=== PATIENT | female | born 1960 | race Caucasian/White ===

== ENCOUNTER 2019-11-26 11:26 | Emergency (ER) | payer MEDICARE, SELFPAY ==
--- NOTE | 2019-11-26 11:29 | ED.DENTAL ---
HPI - Dental/Oral General Chief complaint: Dental/Oral Stated complaint: R/side of face swollen Time Seen by Provider: 11/26/19 11:29 Source: patient and RN notes reviewed History of Present Illness HPI Narrative: Patient is a 59-year-old female who presents the urgent care with complaints of right lower dental pain and right facial swelling. Patient states that she woke up with the pain and swelling this morning. Patient states that drinking fluids does make the pain worse. No other acute complaints. Denies of any fever, nausea, vomiting. No acute distress noted. Patient aware of the plan of care. Some parts of this dictation were generated by voice recognition software and may contain typographical and/or grammatical inaccuracies. Related Data Home Medications Medication Instructions Recorded Confirmed albuterol sulfate [ProAir HFA] INHALATION 02/16/19 budesonide-formoterol [Symbicort] puff INHALATION BID 02/16/19 bupropion HCl 150 mg PO DAILY 02/16/19 duloxetine mg PO 02/16/19 ergocalciferol (vitamin D2) 02/16/19 ferrous sulfate 02/16/19 ipratropium-albuterol ml INHALATION 02/16/19 lamotrigine 02/16/19 levothyroxine 02/16/19 lubiprostone [Amitiza] mcg PO 02/16/19 methadone 02/16/19 pantoprazole PO 02/16/19 pregabalin [Lyrica] 02/16/19 sertraline mg 02/16/19 tiotropium bromide [Spiriva with INHALATION 02/16/19 HandiHaler] atorvastatin 10 mg tablet 10 mg PO DAILY 02/24/19 baclofen 20 mg tablet 20 mg PO QID tablet 02/24/19 11/26/19 calcium carbonate 600 mg calcium 600 mg PO BID 02/24/19 (1,500 mg) tablet ibuprofen 800 mg tablet 800 mg PO Q6H 02/24/19 rrlwjuyetipr-tiyrsbhm-mxudki PO 02/24/19 Allergies Allergy/AdvReac Type Severity Reaction Status Date / Time No Known Allergies Allergy Verified 11/26/19 11:28 Review of Systems Review of Systems: Narrative: CONSTITUTIONAL: Denies fever, chills, or sweats. EYES: Denies visual changes, redness, or discharge. ENT: Denies rhinorrhea, congestion, sore throat, or otalgia. Reports of right sided facial swelling and right lower dental pain CARDIOVASCULAR: Denies chest pain, palpitations, or edema. RESPIRATORY: Denies cough or dyspnea. GASTROINTESTINAL: Denies abdominal pain, nausea, vomiting, or diarrhea. GENITOURINARY: Denies dysuria or hematuria. SKIN: Denies rash or itching. MUSCULOSKELETAL: Denies back pain, joint pain, or myalgia. NEUROLOGIC: Denies headache, numbness, or weakness. All other systems reviewed are negative, except as documented in HPI. [facility] Past Medical History Medical History (Updated 11/26/19 @ 11:49 by MATIAS Leary) Anxiety COPD (chronic obstructive pulmonary disease) Depression Deviated septum GERD (gastroesophageal reflux disease) History of frequent headaches Inflammatory arthritis Thyroid disorder Surgical History Surgical History H/O knee surgery H/O: hysterectomy History of back surgery Hx of cholecystectomy Family History Family History Father COPD (chronic obstructive pulmonary disease) Pneumonia Social History Social History Smoking status: Former smoker Alcohol intake: never Gender identity (if verbalized by the patient): Female Comments At the time of my signature, I reviewed and agree with the nursing past medical, surgical, social, and family history. There is no relevant family history pertinent to the patient complaint. Exam Narrative: Exam Narrative: GENERAL: This is a well-nourished, well-developed patient, in no apparent distress. HEAD: normocephalic, atraumatic. EYES: PERRL. Sclera clear/white. Vision is grossly intact. EARS: External ears normal, right auditory canal clear and without drainage, right TM normal without perforation. Hearing grossly intact. NOSE: External nose normal with no obv
[2019-11-26 11:37] VITALS: BP 109/72; PULSE 86; RESP 16; TEMP 36.6; O2SAT 100
[2019-11-26 11:48] VITALS: BP 109/72; PULSE 86; RESP 16; TEMP 36.6; O2SAT 100
== END 2019-11-26 11:52 | disposition home or self-care (01) ==
PROVIDERS: Emergency Provider Nurse Practitioner Family; PCP Family Medicine
DX: K02.9 Dental caries, unspecified (principal); K11.20 Sialoadenitis, unspecified; Z87.891 Personal history of nicotine dependence; J44.9 Chronic obstructive pulmonary disease, unspecified; K21.9 Gastro-esophageal reflux disease without esophagitis; F41.9 Anxiety disorder, unspecified; F32.9 Major depressive disorder, single episode, unspecified
CPT/HCPCS: 99213; G0463

== ENCOUNTER 2019-11-28 09:27 | Emergency (ER) | payer MEDICARE, SELFPAY ==
--- NOTE | ~2019-11-28 | CT_ITS ---
EXAMINATION: CT soft tissue neck w con DATE: 11/28/2019 11:16 INDICATION: Right facial swelling. TECHNIQUE: Computed tomography (CT) of the neck was performed with 75 mL Omnipaque-350 intravenous co ntrast. Automated exposure control and iterative reconstruction technique were employed. The dose-alonso gth product was 506.07 mGy-cm. COMPARISON: None FINDINGS: There is mild scarring at the lung apices. There are changes of left hemithyroidectomy. The re is mild right high internal jugular chain lymphadenopathy. There is extensive dental disease. The right parotid gland is enlarged with increased density. Right masseter muscle is enlarged. There is s ubcutaneous fat stranding in the right face and anterior upper chest. There is moderate cervical spon dylosis. IMPRESSION: 1. Right face inflammation centered at the parotid gland, consistent with parotiditis. No sialolith. 2. Mild right high internal jugular chain lymphadenopathy, likely reactive. 3. Extensive dental disease. Reviewed, dictated and finalized at location A. IMPRESSION: 1. Right face inflammation centered at the parotid gland, consistent with parot iditis. No sialolith. 2. Mild right high internal jugular chain lymphadenopathy, likely reactive. 3. Extensive dental disease.
[2019-11-28 09:36] VITALS: BP 126/85; PULSE 98; RESP 15; O2SAT 100
[2019-11-28 09:46] VITALS: BP 116/82; PULSE 90; RESP 12; O2SAT 98
[2019-11-28 10:07] LABS: Basophils Percent Auto 0.2 % (0.2-1.2); Hemoglobin 13.5 g/dL (12.0-15.0); Immature Granulocyte Absolute 0.13 K/mm3 (0.00-0.031); Immature Granulocyte Percent A 0.6 % (0-0.5); Lymphocytes Absolute Auto 1.61 K/mm3 (0.9-3.2); Mean Corpuscular HGB Conc 34.6 g/dl (32-36); Mean Corpuscular Hemoglobin 27.8 pg (26-34); Mean Corpuscular Volume 80.2 fl (80-100); Mean Platelet Volume 11.1 fl (7.4-10.4); Monocytes Absolute Auto 1.2 K/mm3 (0.1-0.6); Monocytes Percent Auto 5.8 % (2.6-8.5); Neutrophils Absolute Auto 17.2 K/mm3 (1.3-6.7); Neutrophils Percent Auto 85.4 % (45.5-73.1); Platelet Count Result 212 k/mm3 (150-375); Red Blood Count 4.86 M/mm3 (4.2-5.4); Red Cell Distribution Width 13.1 % (11.5-14.5); White Blood Count 20.1 K/mm3 (4.5-10.0)
[2019-11-28 10:18] LABS: Anion Gap 12 mmol/L (8-16); Blood Urea Nitrogen 12 mg/dL (7-17); Calcium 9.5 mg/dL (8.4-10.2); Carbon Dioxide 23 mmol/L (22-30); Chloride 98 mmol/L (98-107); Estimated Glomerular Filt Rate > 60; Glucose 113 mg/dL (65-105); Potassium 3.6 mmol/L (3.4-5.0); Sodium 133 mmol/L (137-145)
[2019-11-28 10:27] VITALS: BP 123/79; PULSE 88; RESP 16; TEMP 37.2; O2SAT 96
[2019-11-28] MEDS: FAMOTIDINE 20 MG/2 ML VIAL IV PUSH (10:43)
[2019-11-28] MEDS: AMPICILLIN SULB 3 GM/NS 100 ML 3 GM/100 ML VIAL IVPB (10:43)
--- NOTE | 2019-11-28 10:56 | ED.GENADULT ---
HPI - General Adult General Chief complaint: Dental/Oral Stated complaint: facial swelling Time Seen by Provider: 11/28/19 09:32 Source: patient and family Mode of arrival: ambulatory Limitations: no limitations History of Present Illness HPI narrative: Patient is a 59-year-old female who presents to emergency department for evaluation of right-sided preauricular postauricular swelling patient notes that she developed the symptoms in the last day and a half went yesterday to urgent care was placed on Augmentin well today seen by primary care and referred to emergency department for further evaluation patient denies similar occurrence in the past patient notes mild discomfort of the throat with swallowing patient denies other URI symptoms and presents in no distress Related Data Home Medications Medication Instructions Recorded Confirmed albuterol sulfate [ProAir HFA] INHALATION 02/16/19 budesonide-formoterol [Symbicort] puff INHALATION BID 02/16/19 bupropion HCl 150 mg PO DAILY 02/16/19 duloxetine mg PO 02/16/19 ergocalciferol (vitamin D2) 02/16/19 ferrous sulfate 02/16/19 ipratropium-albuterol ml INHALATION 02/16/19 lamotrigine 02/16/19 levothyroxine 02/16/19 lubiprostone [Amitiza] mcg PO 02/16/19 methadone 02/16/19 pantoprazole PO 02/16/19 pregabalin [Lyrica] 02/16/19 sertraline mg 02/16/19 tiotropium bromide [Spiriva with INHALATION 02/16/19 HandiHaler] atorvastatin 10 mg tablet 10 mg PO DAILY 02/24/19 baclofen 20 mg tablet 20 mg PO QID tablet 02/24/19 11/26/19 calcium carbonate 600 mg calcium 600 mg PO BID 02/24/19 (1,500 mg) tablet ibuprofen 800 mg tablet 800 mg PO Q6H 02/24/19 [id number]-mpstmplp-wbpalq PO 02/24/19 Allergies Allergy/AdvReac Type Severity Reaction Status Date / Time No Known Allergies Allergy Verified 11/26/19 11:28 Review of Systems Review of Systems: All systems reviewed & are unremarkable except as noted in HPI and below PMFSH Past Medical History Medical History Anxiety COPD (chronic obstructive pulmonary disease) Depression Deviated septum GERD (gastroesophageal reflux disease) History of frequent headaches Inflammatory arthritis Thyroid disorder Surgical History Surgical History H/O knee surgery H/O: hysterectomy History of back surgery Hx of cholecystectomy Family History Family History Father COPD (chronic obstructive pulmonary disease) Pneumonia Social History Social History Smoking status: Former smoker Alcohol intake: never Gender identity (if verbalized by the patient): Female Exam Narrative: Exam Narrative: GENERAL: Well-appearing, well-nourished, and in no acute distress. HEAD: Normocephalic, atraumatic. EYES: PERRLA and EOMI. ENT: Nares clear, no rhinorrhea or epistaxis. Mucous membranes moist. Oropharynx without tonsillar hypertrophy exudate or other lesions. Patient with redness swelling tenderness in the preauricular parotid region with some redness in the postauricular and submental mandibular region. Floor of the mouth is soft no dental abscesses or other abnormalities in the oropharynx NECK: Supple. Shotty anterior adenopathy noted CHEST: Clear to auscultation. No respiratory distress. No wheezes rales or rhonchi HEART: Regular rate and rhythm. No murmur heard. EXTREMITIES: Normal range of motion. No edema. SKIN: Warm, dry, no rash. NEURO: No focal deficits. Alert and oriented x3. PSYCH: Normal mood and affect. Course Course Emergency Course: Patient in the room at this time aware of case findings treatment plan and diagnosis as well as discussion with ear nose and throat patient will be discharged with continued treatment of her parotitis patient agrees with this and will follow with Kamille
[2019-11-28 11:01] LABS: CRP 21.4 mg/dL (<1.0)
[2019-11-28 13:05] VITALS: BP 118/75; PULSE 75; RESP 16; O2SAT 100
== END 2019-11-28 13:06 | disposition home or self-care (01) ==
PROVIDERS: Emergency Medicine Emergency Medical Services; Emergency Provider Emergency Medicine; PCP Family Medicine
DX: K11.21 Acute sialoadenitis (principal); F41.9 Anxiety disorder, unspecified; J44.9 Chronic obstructive pulmonary disease, unspecified; F32.9 Major depressive disorder, single episode, unspecified; K21.9 Gastro-esophageal reflux disease without esophagitis
CPT/HCPCS: 36415; 70491; 80048; 85025; 86140; 96365; 96368; 96375; 99284; J0131; J0295; Q9967

== ENCOUNTER 2020-01-01 14:30 | Outpatient (CLI) | payer MEDICARE, SELFPAY ==
--- NOTE | ~2020-01-01 | US_ITS ---
EXAMINATION: US art doppler w press LE BI DATE: 01/01/2020 15:47 INDICATION: Peripheral vascular disease. Bilateral lower limb pain. TECHNIQUE: Segmental pressures and plethysmographic and Doppler waveforms of the brachial and lower e xtremity arteries were obtained. COMPARISON: None. FINDINGS: Right and left brachial artery pressures of 85 mm Hg and 94 mm Hg, respectively, are concordant (norm al difference <= 30 mmHg). The right and left high-thigh pressure indices are 1.47 and 1.39, respecti vely (normal > 1.2). The right ankle-brachial index (KEZIA) is 1.32 (normal >= 0.9-1). The right great toe-brachial index (T BI) is 0.93 (normal >= 0.6-0.8). The right lower extremity segmental pressure gradients are normal (n ormal gradients <= 20-30 mmHg between adjacent levels on the same leg or the same levels on the two l egs). Arterial waveforms are triphasic with brisk systolic upstrokes throughout the right lower limb. The left KEZIA is 1.29. The left TBI is 1.14. The left lower extremity segmental pressure gradients are normal. Arterial waveforms are triphasic at the left common femoral, popliteal and posterior tibial arteries and biphasic at the left superficial femoral and dorsalis pedis arteries with brisk systolic upstrokes throughout. IMPRESSION: 1. Normal KEZIA's and TBI's bilaterally. No significant occlusive disease. Reviewed, dictated and finalized at [facility]. 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
== END 2020-01-01 14:31 | disposition home or self-care (01) ==
PROVIDERS: PCP Family Medicine; Visit Provider Family Medicine
DX: I73.9 Peripheral vascular disease, unspecified (principal); M79.604 Pain in right leg
CPT/HCPCS: 93923

== ENCOUNTER 2020-12-14 17:37 | Emergency (ER) | payer MEDICARE, SELFPAY ==
--- NOTE | ~2020-12-14 | XR_ITS ---
XR hand LT min 3V 12/14/2020 17:58 INDICATION: Left hand pain and swelling PROCEDURE: 3 views left hand COMPARISON: 09/12/2013 FINDINGS: Fracture, dislocation or subluxation is not identified. There is mild polyarticular osteoar thritis. The soft tissues appear within normal limits. No foreign bodies are identified. IMPRESSION: 1: NO ACUTE BONE OR JOINT ABNORMALITY IDENTIFIED. Reviewed, dictated and finalized at location A.
--- NOTE | 2020-12-14 17:44 | ED.UPPEXIN ---
HPI - Extremity Injury (Upper) General Chief Complaint: Extremity Injury, Upper Stated Complaint: fall,lt hand injury Time Seen by Provider: 12/14/20 17:50 Source: patient, family (), RN notes reviewed and old records reviewed Mode of arrival: ambulatory Limitations: no limitations History of Present Illness HPI narrative: 60-year-old female presents to the [facility] with complaints of left hand pain and swelling. Patient states that night, 2 days ago patient tripped and fell landing into a wall injuring her hand and the side of her face. Patient states that it is only her hand that hurts. Patient has bruising to the left side of face. Denies having a loss of consciousness. Denies any blurry vision or change in vision. Denies headaches. Patient reports that she has had a back surgery that failed and takes methadone. reports that she is always unsteady on her feet due to her past back surgeries and medication use. Has seen her primary care provider and has been referred to a neurologist in regards to this. Patient has a substantial history of thyroid disease, chronic back pain, neuropathy, depression, high cholesterol and anxiety. Patient does have full range of motion of the left hand. Good strong manager intelligence. Tenderness to metacarpal 3 4 and 5. Bruising and swelling noted. Capillary refill under 2 seconds. Patient states that she has pain of a 5 but everything is numb due to her taking methadone. Discussed with that if she is acting differently, complains of chest pain, abdominal pain, headache, nausea, vomiting or any other symptoms of a concussion she needs to go directly to emergency room. states it has been 2 days and states he is not concerned at this time but verbalizes understanding of signs and symptoms to go to the ER, both are stating they are here just to be evaluated for the pain and swelling of her left hand Related Data Home Medications Medication Instructions Recorded Confirmed albuterol sulfate [ProAir HFA] 2 inh INHALATION Q4H PRN 02/16/19 12/14/20 duloxetine 60 mg PO BID 02/16/19 12/14/20 ergocalciferol (vitamin D2) 1,250 mcg PO WEEKLY 02/16/19 12/14/20 ferrous sulfate 325 mg PO BID 02/16/19 12/14/20 lamotrigine 25 mg PO BID 02/16/19 12/14/20 levothyroxine 50 mcg PO DAILY 02/16/19 12/14/20 methadone 10 mg PO Q8H 02/16/19 12/14/20 pantoprazole 40 mg PO BID 02/16/19 12/14/20 pregabalin [Lyrica] 300 mg PO HS 02/16/19 12/14/20 sertraline 200 mg PO DAILY 02/16/19 12/14/20 tiotropium bromide [Spiriva with 1 cap INHALATION DAILY 02/16/19 12/14/20 HandiHaler] atorvastatin 10 mg tablet 10 mg PO DAILY 02/24/19 12/14/20 baclofen 20 mg tablet 20 mg PO Q6H PRN tablet 02/24/19 12/14/20 calcium carbonate 600 mg calcium 600 mg PO BID 02/24/19 12/14/20 (1,500 mg) tablet ibuprofen 800 mg tablet 800 mg PO Q6H PRN 02/24/19 12/14/20 qnwhrfbaqtnu-ehitxfag-gemwxd 1 tab-cap PO DAILY 02/24/19 12/14/20 [Centrum Silver] bupropion HCl 300 mg PO DAILY 12/14/20 12/14/20 lubiprostone [Amitiza] 24 mcg PO BID 12/14/20 12/14/20 oxybutynin chloride 10 mg PO DAILY 12/14/20 12/14/20 Allergies Allergy/AdvReac Type Severity Reaction Status Date / Time No Known Allergies Allergy Verified 11/26/19 11:28 Review of Systems Review of Systems: All systems reviewed & are unremarkable except as noted in HPI and below Constitutional: Constitutional: Reports no additional constitutional complaints Eyes: Eyes: Reports no additional eye complaints ENT: Reports system reviewed and no additional complaints, except as documented Cardiovascular: Cardiovascular: Reports no additional cardiovascular complaints Respiratory: Respiratory: Reports no additional respiratory complaints Gastrointestinal: Gastrointestinal: Reports no additional gastrointestinal complaints Genitourinary: Genitourinary: Reports no additional female genitourinary complaints Musculoskeletal: Musculoskeletal: Reports as per HPI (Lef
[2020-12-14 17:51] VITALS: BP 110/64; PULSE 73; RESP 18; TEMP 36.6; O2SAT 97
--- NOTE | 2020-12-14 18:51 | PC.NURSE ---
1809-While doing assessment and asking pt to rate pain, she opens and closes her hand several times before giving a number of pain rating. Then when asked what feels like, pt laughs and states, Everything is numb. I'm on methadone .
== END 2020-12-14 18:17 | disposition home or self-care (01) ==
PROVIDERS: Emergency Provider Nurse Practitioner; PCP Family Medicine
DX: S60.222A Contusion of left hand, initial encounter (principal); W01.0XXA Fall on same level from slipping, tripping and stumbling without subsequent striking against object, initial encounter; J44.9 Chronic obstructive pulmonary disease, unspecified; K21.9 Gastro-esophageal reflux disease without esophagitis; E07.9 Disorder of thyroid, unspecified; Z87.891 Personal history of nicotine dependence; F41.9 Anxiety disorder, unspecified; F32.A Depression, unspecified
CPT/HCPCS: 73130; 99213; G0463

== ENCOUNTER 2022-05-20 11:59 | Emergency (ER) | payer MEDICARE, SELFPAY ==
--- NOTE | ~2022-05-20 | XR_ITS ---
EXAMINATION: XR finger 5th RT min 2V INDICATION: Right fifth finger pain TECHNIQUE: Four views of the right fifth finger are obtained. COMPARISON: None available FINDINGS: Bone alignment is normal. No fracture is noted. There is soft tissue swelling of the finger . Mild osteoarthritis is noted in the interphalangeal joints. IMPRESSION: 1. No acute osseous abnormality. Reviewed, dictated and finalized at location B.
[2022-05-20 12:12] VITALS: BP 170/107; PULSE 64; RESP 16; TEMP 37.1; O2SAT 98
--- NOTE | 2022-05-20 12:31 | ED.UPPEXIN ---
HPI - Extremity Injury (Upper) General Chief Complaint: Extremity Injury, Upper Stated Complaint: finger injury Time Seen by Provider: 05/20/22 12:32 Source: patient Mode of arrival: ambulatory Limitations: no limitations History of Present Illness HPI narrative: 61 y/o female presented for c/o right little finger pain, swelling, and bruising after injury yesterday. States she was attempting to twist the shower mavis when she fell foward striking her hand on a free standing toilet paper hutchinson. Patient believes she bent the finger backwards. Endorses decreased ROM due to the swelling. Takes scheduled pain medication. Denies numbness, tingling or weakness of the hand. Related Data Home Medications Medication Instructions Recorded Confirmed albuterol sulfate 90 mcg/actuation 2 inh inhalation Q4H PRN Shortness 02/16/19 05/20/22 aerosol inhaler (ProAir HFA) Of Breath duloxetine 60 mg capsule,delayed 60 mg PO BID 02/16/19 05/20/22 release ergocalciferol (vitamin D2) 1,250 1,250 mcg PO WEEKLY 02/16/19 05/20/22 mcg (50,000 unit) capsule ferrous sulfate 325 mg (65 mg 325 mg PO BID 02/16/19 05/20/22 iron) tablet lamotrigine 25 mg tablet 25 mg PO BID 02/16/19 05/20/22 levothyroxine 50 mcg tablet 50 mcg PO DAILY 02/16/19 05/20/22 methadone 10 mg tablet 10 mg PO Q8H 02/16/19 05/20/22 pantoprazole 40 mg tablet,delayed 40 mg PO BID 02/16/19 05/20/22 release pregabalin 100 mg capsule (Lyrica) 300 mg PO HS 02/16/19 05/20/22 sertraline 100 mg tablet 200 mg PO DAILY 02/16/19 05/20/22 tiotropium bromide 18 mcg capsule 1 cap inhalation DAILY 02/16/19 05/20/22 with inhalation device (Spiriva with HandiHaler) atorvastatin 10 mg tablet 10 mg PO DAILY 02/24/19 05/20/22 baclofen 20 mg tablet 20 mg PO Q6H PRN Muscle Spasm 02/24/19 05/20/22 calcium carbonate 600 mg calcium 600 mg PO BID 02/24/19 05/20/22 (1,500 mg) tablet (Calcium) ibuprofen 800 mg tablet 800 mg PO Q6H PRN Pain 02/24/19 05/20/22 omllmokmqzcl-ncvhqlex-gnsrgy 1 tab-cap PO DAILY 02/24/19 05/20/22 [Centrum Silver] bupropion HCl 300 mg 24 hr tablet, 300 mg PO DAILY 12/14/20 05/20/22 extended release lubiprostone 24 mcg capsule 24 mcg PO BID 12/14/20 05/20/22 (Amitiza) oxybutynin chloride 15 mg 10 mg PO DAILY 12/14/20 05/20/22 tablet,extended release 24 hr Allergies Allergy/AdvReac Type Severity Reaction Status Date / Time No Known Allergies Allergy Verified 05/20/22 12:24 Review of Systems Review of Systems: CONSTITUTIONAL: Denies body aches, fever, chills EYES: Denies visual changes ENT: Denies rhinorrhea, congestion CARDIOVASCULAR: Denies chest pain, palpitations, or edema. RESPIRATORY: Denies cough or dyspnea. SKIN: Denies wounds. MUSCULOSKELETAL: per HPI NEUROLOGIC: Denies headache, numbness, tingling, or weakness. All systems reviewed & are unremarkable except as noted in HPI and below PMFSH Past Medical History Medical History Anxiety COPD (chronic obstructive pulmonary disease) Depression Deviated septum GERD (gastroesophageal reflux disease) History of frequent headaches Inflammatory arthritis Thyroid disorder Surgical History Surgical History H/O knee surgery H/O: hysterectomy History of back surgery Hx of cholecystectomy Family History Family History Father COPD (chronic obstructive pulmonary disease) Pneumonia Social History Social History Smoking status: Former smoker Alcohol intake: never Gender identity (if verbalized by the patient): Female Comments At time of signature, I have reviewed and agree with nursing past medical, surgical, social and family history unless otherwise noted. Please see nursing chart for further information. There is no relevant family history pertinent to th
== END 2022-05-20 12:45 | disposition home or self-care (01) ==
PROVIDERS: Emergency Provider Nurse Practitioner Family; PCP Nurse Practitioner Family
DX: S63.616A Unspecified sprain of right little finger, initial encounter (principal); W19.XXXA Unspecified fall, initial encounter; J44.9 Chronic obstructive pulmonary disease, unspecified; K21.9 Gastro-esophageal reflux disease without esophagitis; M13.80 Other specified arthritis, unspecified site; F41.9 Anxiety disorder, unspecified; F32.A Depression, unspecified
CPT/HCPCS: 73140; 99213; G0463

== ENCOUNTER 2022-08-10 02:33 | Emergency (ER) | payer MEDICARE, SELFPAY ==
[2022-08-10] VITALS (8 sets, daily range): BP systolic 115–186; BP diastolic 88–111; PULSE 97–128; RESP 12–29; TEMP 36.1–37.2; O2SAT 95–100
--- NOTE | ~2022-08-10 | CT_ITS ---
Non-contrast Head CT History: Altered mental status Technique: Axial non-contrast imaging of the brain was performed. Dose reduction technique was used on this scan by utilizing automated exposure control and iterative reconstruction technique. The dose -length product (DLP) was 605.33 mGy-cm. Findings: There is no evidence of intracranial hemorrhage, mass lesion, or acute infarct. Brain par enchyma appears normal. The ventricles and subarachnoid spaces are normal in size. The calvarium ap pears normal. The visualized paranasal sinuses and mastoid air cells are clear. Impression: No significant abnormality seen. Reviewed, dictated and finalized at location . Impression: No significant abnormality seen.
[2022-08-10] MEDS: LORazepam INJ (*CRX) 2 MG/ML VIAL ×2 (02:45→03:20)
--- NOTE | 2022-08-10 03:02 | PC.NURSE ---
Pts daughter, Sydney Escoto PH [phone]
[2022-08-10 03:28] LABS: Basophils Absolute Auto 0.1 K/mm3 (0.0-0.1); Basophils Percent Auto 0.3 % (0.2-1.2); Hematocrit 47.2 % (37.0-47.0); Hemoglobin 15.3 g/dL (12.0-15.0); Immature Granulocyte Absolute 0.06 K/mm3 (0.00-0.031); Immature Granulocyte Percent A 0.4 % (0-0.5); Lymphocytes Absolute Auto 3.43 K/mm3 (0.9-3.2); Lymphocytes Percent Auto 23.8 % (18.3-44.2); Mean Corpuscular HGB Conc 32.4 g/dl (32-36); Mean Corpuscular Hemoglobin 27.2 pg (26-34); Mean Platelet Volume 11.2 fl (7.4-10.4); Monocytes Absolute Auto 0.8 K/mm3 (0.1-0.6); Monocytes Percent Auto 5.4 % (2.6-8.5); Neutrophils Absolute Auto 10.1 K/mm3 (1.3-6.7); Neutrophils Percent Auto 70.1 % (45.5-73.1); Platelet Count Result 318 k/mm3 (150-375); Red Blood Count 5.62 M/mm3 (4.2-5.4); Red Cell Distribution Width 13.9 % (11.5-14.5); White Blood Count 14.4 K/mm3 (4.5-10.0)
[2022-08-10 03:49] LABS: Alanine Aminotransferase 43 U/L (6-35); Albumin Level 4.6 g/dL (3.5-5.1); Alkaline Phosphatase 95 U/L (38-126); Anion Gap 19 mmol/L (8-16); Aspartate Amino Transferase 35 U/L (14-36); Bilirubin,Total 0.6 mg/dL (0.2-1.3); Blood Urea Nitrogen 19 mg/dL (7-17); Calcium 9.5 mg/dL (8.4-10.2); Carbon Dioxide 22 mmol/L (22-30); Chloride 101 mmol/L (98-107); Estimated Glomerular Filt Rate > 60; Ethanol < 10 mg/dL (<10); Glucose 256 mg/dL (65-110); Potassium 3.1 mmol/L (3.4-5.0); Sodium 142 mmol/L (137-145)
--- NOTE | 2022-08-10 03:54 | ED.GENADULT ---
HPI - General Adult General Chief complaint: Overdose <Rustam Sumner MD - Last Filed: 08/10/22 07:36> Stated complaint: combative <Rustam Sumner MD - Last Filed: 08/10/22 07:36> Time Seen by Provider: 08/10/22 03:23 <Rustam Sumner MD - Last Filed: 08/10/22 07:36> History of Present Illness HPI narrative: This is a 62-year-old female brought in the emergency department agitated/combative. EMS was called to a private residence for possible cardiac arrest. When they found her she had decreased respiratory rate and was nonresponsive. She was given Narcan which caused her to wake up and become very violent and aggressive. She had to receive Haldol and restraints and route with EMS. When she arrived here she was still combative with staff and was given Ativan and put in restraints for safety of herself and our staff. Patient is a known opiate user per police. <Rustam Sumner MD - Last Filed: 08/10/22 07:36> Related Data Home medications: Home Medications Medication Instructions Recorded Confirmed albuterol sulfate 90 mcg/actuation 2 inh inhalation Q4H PRN Shortness 02/16/19 05/20/22 aerosol inhaler (ProAir HFA) Of Breath duloxetine 60 mg capsule,delayed 60 mg PO BID 02/16/19 05/20/22 release ergocalciferol (vitamin D2) 1,250 1,250 mcg PO WEEKLY 02/16/19 05/20/22 mcg (50,000 unit) capsule ferrous sulfate 325 mg (65 mg 325 mg PO BID 02/16/19 05/20/22 iron) tablet lamotrigine 25 mg tablet 25 mg PO BID 02/16/19 05/20/22 levothyroxine 50 mcg tablet 50 mcg PO DAILY 02/16/19 05/20/22 methadone 10 mg tablet 10 mg PO Q8H 02/16/19 05/20/22 pantoprazole 40 mg tablet,delayed 40 mg PO BID 02/16/19 05/20/22 release pregabalin 100 mg capsule (Lyrica) 300 mg PO HS 02/16/19 05/20/22 sertraline 100 mg tablet 200 mg PO DAILY 02/16/19 05/20/22 tiotropium bromide 18 mcg capsule 1 cap inhalation DAILY 02/16/19 05/20/22 with inhalation device (Spiriva with HandiHaler) atorvastatin 10 mg tablet 10 mg PO DAILY 02/24/19 05/20/22 baclofen 20 mg tablet 20 mg PO Q6H PRN Muscle Spasm 02/24/19 05/20/22 calcium carbonate 600 mg calcium 600 mg PO BID 02/24/19 05/20/22 (1,500 mg) tablet (Calcium) ibuprofen 800 mg tablet 800 mg PO Q6H PRN Pain 02/24/19 05/20/22 holsmmyqmwzk-fqzgdngo-cbnmxl 1 tab-cap PO DAILY 02/24/19 05/20/22 [Centrum Silver] bupropion HCl 300 mg 24 hr tablet, 300 mg PO DAILY 12/14/20 05/20/22 extended release lubiprostone 24 mcg capsule 24 mcg PO BID 12/14/20 05/20/22 (Amitiza) oxybutynin chloride 15 mg 10 mg PO DAILY 12/14/20 05/20/22 tablet,extended release 24 hr <Rustam Sumner MD - Last Filed: 08/10/22 07:36> Allergies/adverse reactions: Allergies Allergy/AdvReac Type Severity Reaction Status Date / Time No Known Allergies Allergy Verified 05/20/22 12:24 <Rustam Sumner MD - Last Filed: 08/10/22 07:36> [facility] Past Medical History Medical History: Medical History Anxiety COPD (chronic obstructive pulmonary disease) Depression Deviated septum GERD (gastroesophageal reflux disease) History of frequent headaches Inflammatory arthritis Thyroid disorder <Rustam Sumner MD - Last Filed: 08/10/22 07:36> Surgical History Surgical History: Surgical History H/O knee surgery H/O: hysterectomy History of back surgery Hx of cholecystectomy <Rustam Sumner MD - Last Filed: 08/10/22 07:36> Family History Family History: Family History Father COPD (chronic obstructive pulmonary disease) Pneumonia <Rustam Sumner MD - Last Filed: 08/10/22 07:36> Social History Social History: Social History Smoking status: Former smoker Alcohol intake: never Gender identity (if verbalized by the patient): Female <
[2022-08-10 04:03] LABS: Pregnancy On Board Control Positive; Urine Pregnancy Test Negative
--- NOTE | 2022-08-10 04:07 | PC.NURSE ---
During triage assessment of the patient, the patient began to become aggressive and tried to get out restraints. The IV that EMS placed was pulled out. At 0250 Dr. Sumner ordered 2mg Ativan IM. The 2mg Ativan IM was given in the right thigh. Patient continued to be aggressive with staff and was combative during the straight catheter process and was unsuccessful. A 16 gauge IV was placed in the right AC and blood was obtained. Roughly at 0320 Dr. Sumner ordered another 2mg Ativan IVP. After second Ativan dose was given another attempt for straight catheter was successful and urine was sent to lab. Roughly at 0345 patient finally calming down and began sleeping.
[2022-08-10 04:14] LABS: Add Urine Microscopic? YES; Appearance Urine Cloudy (Clear); Bacteria Urine 1+ /hpf; Bilirubin Urine Negative (Negative); Blood Urine Trace (Negative); Color Urine Dark Yellow (Yellow); Glucose Urine UA 2+ mg/dL (Negative); Hyaline Casts Urine Present /lpf; Ketones Urine 2+ mg/dL (Negative); Leukocyte Esterase Ur Negative LEU/UL (Negative); Need Manual Microscopic Reviewed; Nitrate Urine Negative (Negative); Non Pathogenic Casts >20; Protein Urine 2+ mg/dL (Negative); Specific Grav Ur 1.029 (1.001-1.035); Squamous Epithelial Cell Urine Occasional /hpf (Few); pH Urine 5.5 (5.0-9.0)
[2022-08-10 04:15] LABS: Amphetamine Screen Urine Negative (Negative); Benzodiazepines Screen Urine Negative (Negative); Cannabinoid Screen Urine Positive (Negative); Cocaine Screen Urine Negative (Negative); Methadone Screen Urine Positive (Negative); Opiate Screen Urine Negative (Negative); Phencyclidine Screen Urine Negative (Negative)
[2022-08-10 04:18] LABS: Barbiturate Screen Urine Negative (Negative)
--- NOTE | 2022-08-10 04:36 | PC.NURSE ---
Per patients family the patient is prescribed methadone for back pain. Family states that the patient has been sick recently and may have forgot that she took her methadone already today.
--- NOTE | 2022-08-10 05:49 | PC.NURSE ---
The patient began to awake and was confused at first, but was able to be redirected to reality. Patient calm and sleepy. Per EDP Dr. Sumner soft restraints can be removed.
[2022-08-10] MEDS: POTASSIUM CHLORIDE 20 MEQ PACKET (FOR LIQUID) 40 MEQ PO (06:45)
[2022-08-10 06:57] LABS: Creatine Kinase 101 U/L (30-135)
== END 2022-08-10 11:20 | disposition home or self-care (01) ==
PROVIDERS: Emergency Provider Emergency Medicine; PCP Nurse Practitioner Family
DX: T40.601A Poisoning by unspecified narcotics, accidental (unintentional), initial encounter (principal); R40.4 Transient alteration of awareness; J44.9 Chronic obstructive pulmonary disease, unspecified; Z87.891 Personal history of nicotine dependence
CPT/HCPCS: 36415; 70450; 80053; 80307; 81001; 81025; 82550; 84443; 85025; 87077; 87086; 87186; 96374; 96376; 99285; A9270; J2060

== ENCOUNTER 2022-12-05 14:27 | Emergency (ER) | payer MEDICARE, SELFPAY ==
[2022-12-05 14:39] VITALS: BP 166/95; PULSE 69; RESP 16; TEMP 36.7; O2SAT 100
--- NOTE | 2022-12-05 14:44 | ED.EAR ---
HPI - Ear Problem General Chief complaint: Ear Stated complaint: Bilateral Ear Irritation Source: patient Mode of arrival: ambulatory Limitations: no limitations History of Present Illness HPI Narrative: 62 y/o female presented for c/o bilateral ear pressure over the past few days. Reports decreased hearing and occasional dizziness. Left ear pain is worse than the right. 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 Denies tinnitus or drainage from the ears. No treatment [employer]. Endorses recent sinus congestion and cough which have improved. MD Complaint: ear pain Related Data Home Medications Medication Instructions Recorded Confirmed albuterol sulfate 90 mcg/actuation 2 inh inhalation Q4H PRN Shortness 02/16/19 12/05/22 aerosol inhaler (ProAir HFA) Of Breath duloxetine 60 mg capsule,delayed 60 mg PO BID 02/16/19 12/05/22 release ergocalciferol (vitamin D2) 1,250 1,250 mcg PO WEEKLY 02/16/19 12/05/22 mcg (50,000 unit) capsule ferrous sulfate 325 mg (65 mg 325 mg PO BID 02/16/19 12/05/22 iron) tablet lamotrigine 25 mg tablet 25 mg PO BID 02/16/19 12/05/22 levothyroxine 50 mcg tablet 50 mcg PO DAILY 02/16/19 12/05/22 methadone 10 mg tablet 10 mg PO Q8H 02/16/19 12/05/22 pantoprazole 40 mg tablet,delayed 40 mg PO BID 02/16/19 12/05/22 release pregabalin 100 mg capsule (Lyrica) 300 mg PO HS 02/16/19 12/05/22 sertraline 100 mg tablet 200 mg PO DAILY 02/16/19 12/05/22 atorvastatin 10 mg tablet 10 mg PO DAILY 02/24/19 12/05/22 baclofen 20 mg tablet 20 mg PO Q6H PRN Muscle Spasm 02/24/19 12/05/22 calcium carbonate 600 mg calcium 600 mg PO BID 02/24/19 12/05/22 (1,500 mg) tablet (Calcium) ibuprofen 800 mg tablet 800 mg PO Q6H PRN Pain 02/24/19 12/05/22 sitszaamoclp-opmbyfxc-lsorua 1 tab-cap PO DAILY 02/24/19 12/05/22 [Centrum Silver] bupropion HCl 300 mg 24 hr tablet, 300 mg PO DAILY 12/14/20 12/05/22 extended release lubiprostone 24 mcg capsule 24 mcg PO BID 12/14/20 12/05/22 (Amitiza) oxybutynin chloride 15 mg 10 mg PO DAILY 12/14/20 12/05/22 tablet,extended release 24 hr fluticasone furoate 200 1 inh inhalation DAILY 12/05/22 12/05/22 mcg-vilanterol 25 mcg/dose inhalation powder (Breo Ellipta) Allergies Allergy/AdvReac Type Severity Reaction Status Date / Time No Known Allergies Allergy Verified 12/05/22 14:30 Review of Systems Review of Systems: CONSTITUTIONAL: Denies malaise, chills, or fever. EYES: Denies visual changes, redness, or discharge. ENT: Denies rhinorrhea, congestion, sinus pain, and sore throat. Reports ear pain CARDIOVASCULAR: Denies chest pain, palpitations, or edema. RESPIRATORY: Denies cough or dyspnea. GASTROINTESTINAL: Denies abdominal pain, nausea, vomiting, diarrhea SKIN: Denies rash or itching. MUSCULOSKELETAL: Denies myalgia. NEUROLOGIC: Denies headache. All systems reviewed & are unremarkable except as noted in HPI and below PMFSH Past Medical History Medical History Anxiety COPD (chronic obstructive pulmonary disease) Depression Deviated septum GERD (gastroesophageal reflux disease) History of frequent headaches Inflammatory arthritis Thyroid disorder Surgical History Surgical History H/O knee surgery H/O: hysterectomy History of back surgery Hx of cholecystectomy Family History Family History Father COPD (chronic obstructive pulmonary disease) Pneumonia Social History Social History Smoking status: Former smoker Alcohol intake: never Gender identity (if verbalized by the patient): Female Comments At time of signature, agree with nursing past medical, surgical, social and family history. There is no relevant family history pertinent to the presenting complaint Exam Narrative: GENERAL: Well-appearing, and in no acut
== END 2022-12-05 14:56 | disposition home or self-care (01) ==
PROVIDERS: Emergency Provider Nurse Practitioner Family
DX: H60.92 Unspecified otitis externa, left ear (principal); Z87.891 Personal history of nicotine dependence; J44.9 Chronic obstructive pulmonary disease, unspecified; K21.9 Gastro-esophageal reflux disease without esophagitis; M13.80 Other specified arthritis, unspecified site; F41.9 Anxiety disorder, unspecified; F32.A Depression, unspecified
CPT/HCPCS: 99213; G0463

== ENCOUNTER 2023-06-04 15:19 | Outpatient (CLI) | payer MEDICARE, SELFPAY ==
--- NOTE | 2023-06-04 | ECG_ITS ---
SEE SCANNED COPY FOR CONFIRMED REPORT MTDD
== END 2023-06-04 15:20 | disposition home or self-care (01) ==
DX: R94.31 Abnormal electrocardiogram [ECG] [EKG] (principal)
CPT/HCPCS: 93005